=== PATIENT | male | born 1965 | race Caucasian/White ===

== ENCOUNTER 2024-08-09 09:53 | Emergency (ER) | payer MEDICAID, SELFPAY ==
[2024-08-09 09:55] VITALS: BMI 19.3
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
[2024-08-09 10:08] VITALS: BP 135/87; PULSE 73; RESP 18; TEMP 36.4; O2SAT 97
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
[2024-08-09] MEDS: DIPHTH,PERTUSS(ACELL),TET VAC 0.5 ML SYR- ADULT IMi (13:02)
== END 2024-08-09 13:53 | disposition home or self-care (01) ==
PROVIDERS: Emergency Provider Emergency Medicine; PCP Physician Assistant
DX: S00.83XA Contusion of other part of head, initial encounter (principal); S00.81XA Abrasion of other part of head, initial encounter; Y09 Assault by unspecified means; S19.9XXA Unspecified injury of neck, initial encounter
CPT/HCPCS: 70450; 70486; 72125; 90471; 90715; 99284